=== PATIENT | male | born 1960 | race Caucasian/White ===

== ENCOUNTER 2025-06-08 09:06 | Emergency (ER) | payer MEDICARE, OTHER, SELFPAY ==
[2025-06-08 09:07] VITALS: BP 151/92
[2025-06-08 09:35] VITALS: BMI 35.5
[2025-06-08] MEDS: DILAUDID 0.5 MG IV ×2 (09:57→10:12)
--- NOTE | 2025-06-08 10:05 | ED.GENMED ---
History of Present Illness
<Chyna Saenz PA-C - Last Filed: 06/08/25 14:34>
General
Chief Complaint: Abdominal Pain
Time Seen by Provider: 06/08/25 09:25
History of Present Illness
History of Present Illness:
Anselmo is a 64-year-old male with past medical history of who presents with several days of intermittent right lower abdominal pain and associated bulge. Reports that his right groin appeared more swollen than usual but when he would lay down
flat. This morning when he woke up he noticed the bulge and it was painful. As he went about his day at work the pain increased and became intolerable. On presentation to the ER the present painful for about 6 hours. Has never been diagnosed
with inguinal hernia before. Not peritonitic, no nausea, vomiting, bladder or bowel dysfunction. Last bowel movement yesterday. Last ate at 445 this morning
Phy Exam
<Chyna Saenz PA-C - Last Filed: 06/08/25 14:34>
General Physical Exam
General Presentation: well appearing and no apparent distress
General Skin: warm and dry
General Habitus: normal
General Mental: alert
General Hydration: appears well hydrated
ENT Exam
ENT Exam: EOMI, pharynx normal, neck supple and normocephalic
Eye Exam
Eye Exam: PERRL, cornea clear and conjunctiva normal
Cardiovascular Exam
Cardiovascular Exam: regular rate/rhythm, no edema, no murmur and normal peripheral pulses
Pulmonary Exam
Pulmonary Exam: lungs clear, no respiratory distress, no rales, no crackles, no rhonchi, no stridor, no wheezing and no cough
Gastrointestinal Exam
Gastrointestinal Exam: normal bowel sounds, soft, no organomegaly, no pulsatile mass, non distended and other (right groin mass, hard, non erythematous)
Neurological Exam
Neurological Exam: alert, oriented x3, no motor deficits and speech normal
Musculoskeletal Exam
Musculoskeletal Exam: full ROM and no edema
Skin Exam
Skin Exam: normal color, warm/dry, no rash and no petechia
Psychiatric Exam
Psychiatric Exam: normal mood/affect
Course
<Chyna Saenz PA-C - Last Filed: 06/08/25 14:34>
Orders/Labs/Results
Orders:
Orders
06/08/25 09:38
Urinalysis Reflex To Culture Urgent
Date Specimen was Collected: 06/08/25
Time Specimen was Collected: 09:34
Urine Microscopic Reflex Cult Urgent
06/08/25 09:40
HYDROmorphone [Dilaudid] 0.5 mg IV NOW STA
06/08/25 09:56
CT Abd/pelvis W Iv Cont Urgent
Comment:
Reason For Exam: possible right incarcerated inguinal hernia
06/08/25 10:08
Basic Metabolic Panel Urgent
Complete Blood Count/With Diff Urgent
Lactic Acid Urgent
06/08/25 10:09
HYDROmorphone [Dilaudid] 0.5 mg IV NOW STA
06/08/25 10:11
HYDROmorphone [Dilaudid] 0.5 mg .ROUTE .STK-MED ONE
06/08/25 10:12
HYDROmorphone [Dilaudid] 0.5 mg IV NOW STA
06/08/25 11:30
HYDROmorphone [Dilaudid] 1 mg IV NOW STA
Lorazepam [Ativan] 2 mg IV NOW STA
Abnormal Lab Results
06/08/25 06/08/25
09:38 10:08
MCHC 32.4 L g/dL
(33.0-37.0)
RDW 14.6 H %
(11.5-14.5)
Absolute Lymphs (auto) 0.8 L 10^3/uL
(1.2-3.4)
Neutrophils % 79.5 H %
(42.2-75.2)
Lymphocytes % 13.1 L %
(20.5-51.1)
Sodium 134 L mmol/L
(135-145)
BUN 21 H mg/dl
(9-20)
Glucose 100 H mg/dl
(70-99)
Urine Bacteria (Reflex) Few A
(Negative)
Urine Albumin (Reflex) 2+ A
(Neg - Trace)
06/08/25 10:08
06/08/25 10:08
Vital Signs
Initial and Last Documented VS:
Initial Vital Signs
Temp Pulse Resp BP Pulse Ox
36.8 C 83 20 151/92 98
06/08/25 09:07 06/08/25 09:07 06/08/25 09:07 06/08/25 09:07 06/08/25 09:07
Last Documented Vital Signs
Temp Pulse Resp BP Pulse Ox
36.8 C 83 13 134/76 93
06/08/25 09:07 06/08/25 13:00 06/08/25 13:00 06/08/25 13:00 06/08/25 13:00
<Doyle H. Deion, DO - Last Filed: 06/08/25 12:46>
Orders/Labs/Results
Orders:
Orders
06/08/25 09:38
Urinalysis Reflex To Culture Urgent
Date Specimen was Collected: 06/08/25
Time Specimen was Collected: 09:34
Urine Microscopic Reflex Cult Urgent
06/08/25 09:40
HYDROmorphone [Dilaudid] 0.5 mg IV NOW STA
06/08/25 09:56
CT Abd/pelvis W Iv Cont Urgent
Comment:
Reason For Exam: possible right incarcerated inguinal hernia
06/08/25 10:08
Basic Metabolic Panel Urgent
Complete Blood Count/With Diff Urgent
Lactic Acid Urgent
06/08/25 10:09
HYDROmorphone [Dilaudid] 0.5 mg IV NOW STA
06/08/25 10:11
HYDROmorphone [Dilaudid] 0.5 mg .ROUTE .STK-MED ONE
06/08/25 10:12
HYDROmorphone [Dilaudid] 0.5 mg IV NOW STA
06/08/25 11:30
HYDROmorphone [Dilaudid] 1 mg IV NOW STA
Lorazepam [Ativan] 2 mg IV NOW STA
Abnormal Lab Results
06/08/25 06/08/25
09:38 10:08
MCHC 32.4 L g/dL
(33.0-37.0)
RDW 14.6 H %
(11.5-14.5)
Absolute Lymphs (auto) 0.8 L 10^3/uL
(1.2-3.4)
Neutrophils % 79.5 H %
(42.2-75.2)
Lymphocytes % 13.1 L %
(20.5-51.1)
Sodium 134 L mmol/L
(135-145)
BUN 21 H mg/dl
(9-20)
Glucose 100 H mg/dl
(70-99)
Urine Bacteria (Reflex) Few A
(Negative)
Urine Albumin (Reflex) 2+ A
(Neg - Trace)
06/08/25 10:08
06/08/25 10:08
Vital Signs
Initial and Last Documented VS:
Initial Vital Signs
Temp Pulse Resp BP Pulse Ox
36.8 C 83 20 151/92 98
06/08/25 09:07 06/08/25 09:07 06/08/25 09:07 06/08/25 09:07 06/08/25 09:07
Last Documented Vital Signs
Temp Pulse Resp BP Pulse Ox
36.8 C 83 13 134/76 93
06/08/25 09:07 06/08/25 13:00 06/08/25 13:00 06/08/25 13:00 06/08/25 13:00
<Chyna Saenz PA-C - Last Filed: 06/08/25 14:34>
MDM/Problems Addressed
Differential Diagnosis Includes:
Right inguinal hernia possible incarceration possible strangulation
Case discussed with general surgery for ascending CT scan prior to reduction. Medications given with improvement in pain.
CT scan resulted shows right indirect inguinal hernia no evidence of bowel obstruction. Surgery has requested additional pain medications given and to hold off on attempting to reduce as they would like to try.
Surgery was able to reduce hernia at bedside and are recommending observing patient for several hours with p.o. trial. If able to ambulate and tolerate food okay for discharge.
Able to ambulate and tolerated PO. Will discharge home. Follow up with surgery
<Chyna Saenz PA-C - Last Filed: 06/08/25 14:34>
*Pulse Oximetry
SaO2: 98
Oxygen Mode of Delivery: Room air
Patient hypoxic: no
*Critical Care Note
Total Time (30-74mins, 75-104mins- exclusive of procedures): Not Applicable
ED Attending Note
<Chyna Saenz PA-C - Last Filed: 06/08/25 14:34>
-
Portions of this chart may have been created with voice recognition software.� Occasional wrong word or��sound alike� substitutions may have occurred due to the inherent limitations of voice recognition software.
<Doyle Albarran DO - Last Filed: 06/08/25 12:46>
ED Attending Note
Patient seen and examined by attending physician: Yes
I performed the substantive portion of visit, reviewed & personally made and approve the management plan that is documented in note by myself or ALBERT.: Yes
ED Attending Note:
I agree with Nasra's note
Patient presents with right lower quadrant abdominal pain. No nausea or vomiting but noted that there is swelling in that area that will not go down. Area of swelling became more painful today. CT showed a right inguinal hernia with colon. No
evidence of an obstruction. Patient already seen by Dr. Rogel who has reduced a right inguinal hernia.
abdomen: soft, nontender, no residual hernia
We will observe patient for short period of time to make sure his abdominal exam stays benign. Patient can be discharged to follow-up with surgery as an outpatient
Discharge Plan
Departure
Patient Disposition: Home (Routine Discharge)
Date of Disposition: 06/08/25
Time of Disposition: 14:32
Patient with high blood pressure during this ER visit?: No
Discharge Problem:
Inguinal hernia
Instructions: Groin hernia repair (DC)
Referrals:
Shamir Rogel MD [Active, Surgical]
UNKNOWN - PT DOES,NOT KNOW [Family Provider]
Activity Restrictions/Additional Instructions:
Follow-up with surgery for consideration of elective right inguinal hernia repair. Return to the ER if bulge represents and is painful to the touch
Interventions
Interventions:
*Risk Screen - Suicide Last Done: 06/08/25 09:07
*General Assessment Last Done: 06/08/25 09:07
*Neglect/Abuse Screening Last Done: 06/08/25 09:07
*ED- Fall Risk Assessment Last Done: 06/08/25 09:36
*ED COVID-19 Vaccine History Last Done: 06/08/25 09:36
*ED Influenza Vaccine History Last Done: 06/08/25 09:36
QO-Ndufmy-Wgjrgsxblg Assessment Last Done: 06/08/25 09:37
Discharge Date and Time
Print Language: PASHTO
[2025-06-08 10:15] VITALS: BP 171/82
[2025-06-08 10:16] LABS: Hematocrit 42.9 % (39.0-52.0); Hemoglobin 13.9 g/dL (13.0-18.0); Mean Corp Hgb Conc. 32.4 g/dL (33.0-37.0); Mean Corpuscular Volume 88.1 fL (80.0-94.0); Nucleated Red Blood Cells % 0 % (-); Platelet Count 292 10^3/uL (130-400); Red Cell Dist. Width 14.6 % (11.5-14.5)
[2025-06-08 10:19] LABS: Urine Character Clear (Clear)
[2025-06-08 10:32] LABS: Blood Urea Nitrogen 21 mg/dl (9-20); Calcium 9.5 mg/dl (8.4-10.2); Carbon Dioxide 24 mmol/L (22-30); Chloride 104 mmol/L (98-107); Estimated Creatinine Clearance 86 ml/min; Glucose 100 mg/dl (70-99); Potassium 4.4 mmol/L (3.5-5.1); Sodium 134 mmol/L (135-145); eGFR > 60.00
[2025-06-08 10:34] LABS: Urine Squamous Cell 0-2 /LPF (Few)
[2025-06-08 10:35] LABS: Urine Red Blood Cell 0-2 /HPF (0-2)
[2025-06-08] MEDS: ATIVAN 2 MG IV (11:51)
[2025-06-08] MEDS: DILAUDID 1 MG IV (11:51)
[2025-06-08 11:57] VITALS: BP 157/76
[2025-06-08 12:00] VITALS: BP 148/81
--- NOTE | 2025-06-08 12:42 | CON.GS ---
Consultation
-
Date/Time Consultation Performed: 06/08/25
Requesting Provider: Letty
Performing Provider: Juan F
Reason for Consultation: Incarcerated right inguinal hernia
Medical History
-
Chief Complaint: Right groin pain
History of Present Illness:
64M with acute onset right groin pain and swelling. First noticed 3-4 days ago, would go in and out, then this am woke up and it would not reduce and became severely painful. He denies f/c/n/v. He continues to pass gas. He was doing yard work prior
to onset. No home meds.
Past Medical History
Past Medical History: Reviewed & Noncontributory
Past Surgical History: Reviewed & Noncontributory
Social History
Tobacco: Non-Smoker
Alcohol: None
Drug: None
Family History
Family History: Reviewed & Noncontributory
Allergies / Home Medications
Allergy/AdvReac Type Severity Reaction Status Date / Time
No Known Allergies Allergy Verified 06/08/25 09:11
Review of Systems
-
A 10 point review of systems was completed, and was negative except as per HPI.
Physical Exam
Vital Signs
Temp Pulse Resp BP Pulse Ox
98.3 F 80 14 148/81 98
06/08/25 09:07 06/08/25 12:00 06/08/25 12:00 06/08/25 12:00 06/08/25 12:00
06/07/25 06/08/25 06/09/25
06:59 06:59 06:59
Actual Weight 113.6 kg
Body Mass Index (BMI) 35.5
Lab Results
06/08/25 10:08
06/08/25 10:08
WBC 6.4 10^3/uL (4.8-10.8) 06/08/25 10:08
Hgb 13.9 g/dL (13.0-18.0) 06/08/25 10:08
Hct 42.9 % (39.0-52.0) 06/08/25 10:08
Plt Count 292 10^3/uL (130-400) 06/08/25 10:08
Abs Immat Gran (auto) 0.0 10^3/uL (0-0.05) 06/08/25 10:08
Neutrophils % 79.5 % (42.2-75.2) H 06/08/25 10:08
Physical Exam
General: Well Developed, Well Nourished and No Apparent Distress
GI: Soft, Non Tender and Non Distended
Genito-urinary: Inguinal Hernia (right inguinal hernia, moderate size, reduced at bedside with light sedation)
Skin: Warm and Dry
Neuro: AO x 3
Psych: Calm
Data Reviewed
-
CT Scan: Image Personally Visualized and interpreted, Report Reviewed by me, Discussed with Physician, Discussed with Patient and Discussed with Family
Labs: Labs Reviewed by me
Assessment / Plan
-
64M with incarcerated RIH containing sigmoid colon, now reduced
AFVSS, tender firm hernia, no skin changes
No leukocytosis
CT with RIH containing non-inflamed, non-obstructed sigmoid colon
Successful reduction at bedside with 1mg dilaudid and 2mg ativan. Pt is voiding.
Plan for obs in the ED, PO challenge. If he is able to abulate, marco a PO and pain improves, he can be DC'ed home.
Will have my office follow up to schedule elective RIHR
[2025-06-08 13:00] VITALS: BP 134/76
[2025-06-08 14:00] VITALS: BP 143/98
== END 2025-06-08 14:46 | disposition home or self-care (01) ==
LOC: EMR 09:06
PROVIDERS: Surgery Trauma Surgery; EMERGENCY PHYSICIAN Emergency Medicine
DX: K40.90 Unilateral inguinal hernia, without obstruction or gangrene, not specified as recurrent (principal)
CPT/HCPCS: 99284; 96374; 96375; 96376 ×2; 74177; 80048; 81003; 81015; 83605; 85025; Q9967

== ENCOUNTER 2025-06-20 06:25 | Day surgery (SDC) | payer MEDICARE, OTHER, SELFPAY ==
[2025-06-14 13:27] VITALS: BMI 34.3
[2025-06-20] VITALS (8 sets, daily range): BP systolic 132–153; BP diastolic 73–91; BMI 34.3
[2025-06-20] MEDS: NORMOSOL-R/PLASMALYTE-A 1000 IV (08:14)
[2025-06-20] MEDS: TYLENOL 1000 MG PO (08:14)
--- NOTE | 2025-06-20 10:33 | OR.RPT ---
Operative Report
Operative Report
Primary Surgeon: Juan F
Assisting: Adam GUDINO
Pre-op Diagnosis: Right inguinal hernia
Post-op Diagnosis: Same
Procedure Performed: Robot assisted laparoscopic repair right inguinal hernia
Anesthesia Type: GETA
Specimen / Cultures: None
Estimated Blood Loss: 15cc
Complications: None immediate
Operative Findings: Large sac indirect defect; XL MID 3D max
Date of Surgery: 06/20/25
Indications: This 65M developed a symptomatic right inguinal hernia. He was seen in the emergency department for incarceration involving sigmoid colon. The hernia was reduced with light sedation at bedside and he was discharged. He returns today
for elective Robot assisted laparoscopic repair of right inguinal hernia.
Description of procedure:� The patient was taken to the operating room and positioned into supine position. The patient�s abdomen was prepped and draped in standard sterile fashion. A time-out was completed verifying correct patient, procedure,
site, positioning, and implants and special equipment prior to beginning this procedure.
A stab incision was made in the left upper quadrant, a Veress needle was inserted and proper position was confirmed by aspiration and saline drop test. Following this, pneumoperitoneum was created with insufflation of carbon dioxide to 12 mmHg. Then
a 8mm robotic trocar was inserted above and to the left of the umbilicus. A laparoscope was inserted and the area of initial trocar entry and Veress needle placement were both inspected and no injuries were found. Two 8mm trocars were then placed
lateral to the rectus sheath under direct visualization.
Both inguinal regions were inspected and the median umbilical ligament, medial umbilical ligament, and lateral umbilical fold were identified. Attention was turned to the right groin. The peritoneum was incised transversely above the defect and a
flap was developed in the caudad direction. Teo�s ligament was identified ultimately dissected to its junction with the iliac vein and the space of Retzius was developed bluntly. The dissection was continued inferiorly to the iliopubic tract,
with care taken to avoid injury to the femoral branch of the genitofemoral nerve and the lateral femoral cutaneous nerve. The cord structures were parietalized.
The direct space was inspected and a hernia defect was not identified. The femoral space was inspected and no defect was identified. The indirect space was inspected a defect was identified and reduced. The canal was inspected and no cord lipoma was
identified.
Extra large right MID 3D max mesh was passed through a trocar. The mesh was placed into the preperitoneal space and moved into position to lay flat and completely cover the direct, indirect, and femoral spaces with overlap at the midline. The mesh
was secured into place using 2-0 vicryl suture to Teo�s ligament medially and laterally. Care was taken to avoid the inferolateral triangles containing the iliac vessels and genital nerves. The peritoneal flap was closed over the mesh and secured
with 2-0 monocryl stratafix suture in similar positions of safety. A small central flap rent was repaired with 2-0 vicryl suture. A 14g angiocath was used to decompress the preperitoneal space revealing good seal and all mesh in good position
without folding or curling.
After ensuring adequate hemostasis, the trocars were removed and the pneumoperitoneum allowed to escape. The trocar incisions were closed at the skin level using 4-0 monocryl and topical skin adhesive. Marcaine 0.5% with epinephrine was infiltrated
into the skin around the port incisions. All counts were correct and the patient tolerated the procedure well and was taken to the postanesthesia care unit in stable condition.
The assistance of Adam COX was required due to the complexity of the procedure. During the procedure she assisted with retraction, resection, and closure of the wound.
== END 2025-06-20 12:20 | disposition home or self-care (01) ==
LOC: SDS 06:25
PROVIDERS: ATTENDING PHYSICIAN Surgery; FAMILY PHYSICIAN Internal Medicine
DX: K40.90 Unilateral inguinal hernia, without obstruction or gangrene, not specified as recurrent (principal)
CPT/HCPCS: 49650